=== PATIENT | female | born 1930 | race African-American/Black ===

== ENCOUNTER 2017-10-15 12:47 | Inpatient (IN) | payer MEDICARE, MEDICAID ==
[~2017-10-15] VITALS: Ht 157.5 cm; Wt 65.8 kg
[2017-10-15] MEDS ORDERED: PANTOPRAZOLE SODIUM 40 MG/VIAL IV STA (13:40)
[2017-10-15] MEDS ORDERED: SODIUM CHLORIDE 0.9% 1000ML BAG (SEPSIS BOLUS) IV ONE (13:45)
[2017-10-15 14:13] LABS: BASOPHILS % 0.2 % (0.0-2.0); HEMATOCRIT. 34.5 % (36.0-48.0); HEMOGLOBIN. 11.1 g/dL (12.0-16.0); LYMPHOCYTES % 9.8 % (20.0-50.0); MEAN CORPUSCULAR VOLUME 90.3 fL (81.0-99.0); MEAN PLATELET VOLUME 12.1 fl (7.4-10.4); MONOCYTES % 6.5 % (2.0-8.0); NEUTROPHILS % 75.5 % (40.0-76.0); PLATELET 170 x1000/uL (130-400); RED BLOOD CELL COUNT 3.82 mill/uL (4.2-5.4); RED CELL DISTRIBUTION WIDTH 13.8 % (11.6-14.6)
[2017-10-15 14:21] LABS: PARTIAL THROMBOPLASTIN TIME 27.9 sec (23.4-31.0); PROTHROMBIN TIME 10.8 sec (9.4-11.6)
[2017-10-15 14:24] LABS: CHLORIDE 100 mEq/L (98-107)
[2017-10-15 14:25] LABS: CLARITY URINE CLEAR (CLEAR); COLOR URINE YELLOW (YELLOW); KETONES URINE NEGATIVE (NEGATIVE); LEUKOCYTE ESTERASE URINE 2+ (NEGATIVE); NITRITE URINE NEGATIVE (NEGATIVE); OCCULT BLOOD URINE NEGATIVE (NEGATIVE); PH URINE 5.5 (4.5-8.0); PROTEIN URINE NEGATIVE (NEGATIVE); SPECIFIC GRAVITY URINE 1.025 (1.005-1.030)
[2017-10-15] MEDS ORDERED: DEXT 5%/0.45% NACL 1000ML 1,000 ML IV SCH ×2 (14:46→15:03)
[2017-10-15] MEDS ORDERED: ACETAMINOPHEN 650MG/20.3ML UDC GT PRN (15:00)
[2017-10-15] MEDS ORDERED: ONDANSETRON HCL 4MG/2ML VIAL IV PRN (15:00)
[2017-10-15] MEDS ORDERED: CEFTRIAXONE 1 G PREMIX 50 ML IV NR (16:15)
[2017-10-15] MEDS: LEVOFLOXACIN 500MG PREMIX 100 ML IV SCH (18:04)
[2017-10-15 22:05] LABS: BASOPHILS % 0.3 % (0.0-2.0); EOSINOPHILS % 11.2 % (0.0-5.0); HEMATOCRIT. 31.5 % (36.0-48.0); HEMOGLOBIN. 10.2 g/dL (12.0-16.0); LYMPHOCYTES % 9.1 % (20.0-50.0); MEAN CORPUSCULAR HEMOGLOBIN 29.5 pg (28.0-32.0); MEAN CORPUSCULAR VOLUME 91.2 fL (81.0-99.0); MEAN PLATELET VOLUME 11.9 fl (7.4-10.4); NEUTROPHILS % 73.4 % (40.0-76.0); PLATELET 128 x1000/uL (130-400); RED BLOOD CELL COUNT 3.45 mill/uL (4.2-5.4); RED CELL DISTRIBUTION WIDTH 13.9 % (11.6-14.6)
[2017-10-16] VITALS (8 sets, daily range): BP systolic 96–154; BP diastolic 48–97
[2017-10-16] MEDS: DEXT 5%/0.45% NACL KCL 20MEQ/L 1,000 ML IV SCH ×2 (03:07→21:04)
[2017-10-16] MEDS ORDERED: TRIA15OI8 TP (05:17)
[2017-10-16] MEDS ORDERED: OMEP20CA10 GT (05:17)
[2017-10-16] MEDS ORDERED: ACET-2128 PO (05:17)
[2017-10-16] MEDS ORDERED: CRAN405C GT (05:17)
[2017-10-16] MEDS ORDERED: IPRA3AMP IH (05:17)
[2017-10-16] MEDS ORDERED: [UNRECOGNIZED DRUG - CODE] GT (05:17)
[2017-10-16] MEDS ORDERED: METO25TA6 PO (05:17)
[2017-10-16] MEDS ORDERED: MOM GT (05:17)
[2017-10-16] MEDS ORDERED: ALBU2.5V13 IH (05:17)
[2017-10-16 09:02] LABS: BASOPHILS % 0.2 % (0.0-2.0); EOSINOPHILS % 13.1 % (0.0-5.0); HEMATOCRIT. 32.2 % (36.0-48.0); HEMOGLOBIN. 10.6 g/dL (12.0-16.0); LYMPHOCYTES % 12.2 % (20.0-50.0); MEAN CORPUSCULAR HEMOGLOBIN 29.8 pg (28.0-32.0); MEAN CORPUSCULAR VOLUME 90.7 fL (81.0-99.0); MEAN PLATELET VOLUME 11.3 fl (7.4-10.4); MONOCYTES % 6.2 % (2.0-8.0); NEUTROPHILS % 68.3 % (40.0-76.0); PLATELET 141 x1000/uL (130-400); RED BLOOD CELL COUNT 3.55 mill/uL (4.2-5.4); RED CELL DISTRIBUTION WIDTH 13.9 % (11.6-14.6)
[2017-10-16 09:14] LABS: CHLORIDE 108 mEq/L (98-107)
[2017-10-16] MEDS: PANTOPRAZOLE SODIUM 40 MG/VIAL IV SCH (09:15)
[2017-10-16] MEDS ORDERED: IPRATROPIUM/ALBUTEROL 0.5-3(2.5)MG/3ML NEB HHN PRN (15:15)
[2017-10-16] MEDS: IPRATROPIUM/ALBUTEROL 0.5-3(2.5)MG/3ML NEB HHN SCH ×2 (15:59→22:17)
[2017-10-17] VITALS (12 sets, daily range): BP systolic 97–159; BP diastolic 56–91
[2017-10-17] MEDS: IPRATROPIUM/ALBUTEROL 0.5-3(2.5)MG/3ML NEB HHN SCH ×6 (02:11→20:25)
[2017-10-17] MEDS: ACETYLCYSTEINE 100MG/ML 10% VIAL 4ML INH SCH ×3 (02:11→16:13)
[2017-10-17 07:18] LABS: BASOPHILS % 0.3 % (0.0-2.0); EOSINOPHILS % 11.4 % (0.0-5.0); HEMATOCRIT. 31.4 % (36.0-48.0); HEMOGLOBIN. 10.2 g/dL (12.0-16.0); LYMPHOCYTES % 12.5 % (20.0-50.0); MEAN CORPUSCULAR HEMOGLOBIN 29.4 pg (28.0-32.0); MEAN CORPUSCULAR VOLUME 90.8 fL (81.0-99.0); MEAN PLATELET VOLUME 10.4 fl (7.4-10.4); MONOCYTES % 6.2 % (2.0-8.0); NEUTROPHILS % 69.6 % (40.0-76.0); PLATELET 124 x1000/uL (130-400); RED BLOOD CELL COUNT 3.46 mill/uL (4.2-5.4); RED CELL DISTRIBUTION WIDTH 13.8 % (11.6-14.6)
[2017-10-17 07:33] LABS: CHLORIDE 108 mEq/L (98-107)
[2017-10-17] MEDS ORDERED: LEVOFLOXACIN 500MG PREMIX 100 ML IV SCH (08:15)
[2017-10-17] MEDS ORDERED: POTASSIUM CHLORIDE 20MEQ/PACKET PO SCH (08:15)
[2017-10-17] MEDS: PANTOPRAZOLE SODIUM 40 MG/VIAL IV SCH (09:00)
[2017-10-17] MEDS ORDERED: PANTOPRAZOLE 40MG DR TABLET PO NR (09:30)
[2017-10-17] MEDS: LEVOFLOXACIN 500MG PREMIX 100 ML IV SCH (19:01)
[2017-10-17] MEDS ORDERED: PERMETHRIN 5% CREAM 60GM TOP NR (22:00)
[2017-10-18] VITALS (12 sets, daily range): BP systolic 81–178; BP diastolic 49–108
[2017-10-18] MEDS: IPRATROPIUM/ALBUTEROL 0.5-3(2.5)MG/3ML NEB HHN SCH ×6 (01:27→23:52)
[2017-10-18] MEDS: ACETYLCYSTEINE 100MG/ML 10% VIAL 4ML INH SCH ×4 (01:27→23:52)
[2017-10-18 07:18] LABS: BASOPHILS % 0.2 % (0.0-2.0); EOSINOPHILS % 9.1 % (0.0-5.0); HEMATOCRIT. 31.8 % (36.0-48.0); HEMOGLOBIN. 10.3 g/dL (12.0-16.0); LYMPHOCYTES % 8.3 % (20.0-50.0); MEAN CORPUSCULAR HEMOGLOBIN 29.3 pg (28.0-32.0); MEAN CORPUSCULAR VOLUME 90.8 fL (81.0-99.0); MEAN PLATELET VOLUME 11.7 fl (7.4-10.4); MONOCYTES % 6.5 % (2.0-8.0); NEUTROPHILS % 75.9 % (40.0-76.0); PLATELET 154 x1000/uL (130-400); RED CELL DISTRIBUTION WIDTH 13.6 % (11.6-14.6)
[2017-10-18 07:46] LABS: CHLORIDE 108 mEq/L (98-107)
[2017-10-18] MEDS ORDERED: CLONIDINE 0.1MG TABLET PO PRN (08:00)
[2017-10-18] MEDS: NITROFURANTOIN 100MG M/M CAPSULE PO SCH ×2 (09:48→21:13)
[2017-10-18] MEDS: PANTOPRAZOLE SODIUM 40 MG/VIAL IV SCH (09:48)
[2017-10-18] MEDS: METOPROLOL TARTRATE 25MG TABLET PO SCH ×2 (13:45→21:00)
[2017-10-18] MEDS: PIPERACILLIN/TAZ 2.25G PREMIX 50 ML IV SCH ×2 (15:10→21:13)
[2017-10-18] MEDS ORDERED: DIATR MEGLU/DIATRIZOATE SOLN 30ML ONE (15:11)
[2017-10-19] VITALS (14 sets, daily range): BP systolic 93–167; BP diastolic 51–96
[2017-10-19] MEDS: IPRATROPIUM/ALBUTEROL 0.5-3(2.5)MG/3ML NEB HHN SCH ×2 (03:33→20:17)
[2017-10-19] MEDS: PIPERACILLIN/TAZ 2.25G PREMIX 50 ML IV SCH ×4 (03:40→21:36)
[2017-10-19 06:38] LABS: HEMATOCRIT. 30.5 % (36.0-48.0); HEMOGLOBIN. 9.8 g/dL (12.0-16.0); MEAN CORPUSCULAR VOLUME 90.8 fL (81.0-99.0); MEAN PLATELET VOLUME 11.9 fl (7.4-10.4); PLATELET 160 x1000/uL (130-400); RED BLOOD CELL COUNT 3.36 mill/uL (4.2-5.4); RED CELL DISTRIBUTION WIDTH 13.6 % (11.6-14.6)
[2017-10-19] MEDS: ACETYLCYSTEINE 100MG/ML 10% VIAL 4ML INH SCH ×2 (07:36→15:22)
[2017-10-19 07:48] LABS: CHLORIDE 107 mEq/L (98-107)
[2017-10-19] MEDS: NITROFURANTOIN 100MG M/M CAPSULE PO SCH ×2 (09:53→21:36)
[2017-10-19] MEDS: PANTOPRAZOLE SODIUM 40 MG/VIAL IV SCH (09:53)
[2017-10-19 11:30] LABS: PLATELET ESTIMATE NORMAL
[2017-10-20] VITALS: BP 104/61
[2017-10-20 00:40] VITALS: BP 123/73
== END 2017-10-20 00:45 | DRG 871 ==
LOC: ER 13:07 → 5WST 16:14 → ENRESERV 10-16 02:45 → 5EST 10-16 21:18
PROVIDERS: ADMIT Internal Medicine Nephrology; ATTEND Internal Medicine Nephrology
PROC: 05HM33Z Insertion of Infusion Device into Right Internal Jugular Vein, Percutaneous Approach (ICD-10-PCS; 2017-10-17)
PROC: B543ZZA Ultrasonography of Right Jugular Veins, Guidance (ICD-10-PCS; 2017-10-17)
PROC: 0D20XUZ Change Feeding Device in Upper Intestinal Tract, External Approach (ICD-10-PCS; principal; 2017-10-18)
DX: A41.9 Sepsis, unspecified organism (principal); J96.20 Acute and chronic respiratory failure, unspecified whether with hypoxia or hypercapnia; E43 Unspecified severe protein-calorie malnutrition; G93.40 Encephalopathy, unspecified; K92.2 Gastrointestinal hemorrhage, unspecified; D64.9 Anemia, unspecified; E86.0 Dehydration; F03.90 Unspecified dementia, unspecified severity, without behavioral disturbance, psychotic disturbance, mood disturbance, and anxiety; N39.0 Urinary tract infection, site not specified; J98.11 Atelectasis; R47.01 Aphasia; K94.21 Gastrostomy hemorrhage; R62.7 Adult failure to thrive; B96.89 Other specified bacterial agents as the cause of diseases classified elsewhere; I11.9 Hypertensive heart disease without heart failure; I25.10 Atherosclerotic heart disease of native coronary artery without angina pectoris; I25.2 Old myocardial infarction; Z86.73 Personal history of transient ischemic attack (TIA), and cerebral infarction without residual deficits
CPT/HCPCS: 36415; 36569; 71045; 74018; 76937; 80048; 80053; 81003; 82728; 83605; 83690; 83735; 84443; 84484; 85025; 85379; 85610; 85730; 86850; 86900; 87040; 87086; 87186; 93005; 93308; 93970; 94640; 96365; 96366; 97162; 99285; C9113; J0696; J1956; J2543; J7030; J7608; J7620; Q9963; A4315